=== PATIENT | male | born 1975 | race Caucasian/White ===

== ENCOUNTER 2020-03-14 14:02 | Outpatient (REF) | payer BC, SELFPAY ==
[2020-03-14 14:35] LABS: MANUAL DIFF FLAG NO
[2020-03-14 14:37] LABS: Basophils Absolute Auto 0.1 X10*3/uL (0.0-0.2); Eosinophils Absolute Auto 0.1 X10*3/uL (0.0-0.4); Eosinophils Percent Auto 2.5 % (0-4); Hematocrit 45.6 % (42-52); Imm Gran Abs Auto 0.02 X10*3/uL (0.00-0.03); Imm Gran Pct Auto 0.4 % (0.0-0.4); Lymphocytes Absolute Auto 1.7 X10*3/uL (1.2-4.9); Lymphocytes Percent Auto 32.7 % (20-40); Mean Corpuscular HGB Conc 35.1 g/dl (31.0-36.0); Mean Corpuscular Hemoglobin 32.1 pg (27.0-33.0); Mean Corpuscular Volume 91.4 fL (80-98); Mean Platelet Volume 10.1 fL (9.4-12.4); Monocytes Absolute Auto 0.5 X10*3/uL (0.1-1.2); Monocytes Percent Auto 8.7 % (2-11); Neutrophils Absolute Auto 2.9 X10*3/uL (2.0-8.3); Neutrophils Percent Auto 54.7 % (45-73); Platelet Count 151 X10*3/uL (160-400); Red Blood Count 4.99 X10*6/uL (4.60-5.80); Red Cell Distribution Width 12.6 % (11.0-16.0); White Blood Count 5.2 X10*3/uL (4.8-10.8)
[2020-03-14 14:59] LABS: Alanine Aminotransferase 36 U/L (0-40); Albumin Level 4.6 g/dL (3.5-5.0); Alkaline Phosphatase 57 U/L (39-117); Anion Gap 13 (12-20); Aspartate Amino Transferase 21 U/L (5-37); Bilirubin Total 0.6 mg/dL (0.0-1.0); Blood Urea Nitrogen 14 mg/dL (9-16); Calcium 8.5 mg/dL (8.4-10.2); Carbon Dioxide 26 mmol/L (22-29); Chloride 106 mmol/L (96-108); Estimated Glomerular Filt Rate > 60; Glucose Random 100 mg/dL (60-115); Potassium 4.6 mmol/l (3.3-5.1); Sodium 140 mmol/L (135-145); Total Protein 7.4 g/dL (6.5-8.0)
[2020-03-16 18:17] LABS: TS Negative Control Passed; TS Panel A 0; TS Panel B 0; TS Positive Control Passed; TSpotTB Negative (SeeBelow)
== END 2020-03-14 14:03 | disposition home or self-care (01) ==
LOC: HO.LAB 14:02
PROVIDERS: PCP Internal Medicine; Visit Provider Dermatology
DX: L40.0 Psoriasis vulgaris (principal); D23.9 Other benign neoplasm of skin, unspecified; L81.4 Other melanin hyperpigmentation; L70.8 Other acne; T07.XXXA Unspecified multiple injuries, initial encounter
CPT/HCPCS: 36415; 80053; 85025; 86481

== ENCOUNTER 2021-06-03 07:01 | Outpatient (REF) | payer BC, SELFPAY ==
[2021-06-03 11:25] LABS: MANUAL DIFF FLAG NO
[2021-06-03 11:41] LABS: Basophils Percent Auto 1.1 % (0-2); Eosinophils Absolute Auto 0.1 X10*3/uL (0.0-0.4); Eosinophils Percent Auto 1.6 % (0-4); Hematocrit 43.9 % (42.0-52.0); Lymphocytes Absolute Auto 1.3 X10*3/uL (1.2-4.9); Lymphocytes Percent Auto 33.9 % (20-40); Mean Corpuscular HGB Conc 34.2 g/dl (31.0-36.0); Mean Corpuscular Hemoglobin 31.4 pg (27.0-33.0); Mean Platelet Volume 10.5 fL (9.4-12.4); Monocytes Absolute Auto 0.3 X10*3/uL (0.1-1.2); Neutrophils Absolute Auto 2.1 x10*3/uL (2.0-8.3); Neutrophils Percent Auto 54.4 % (45-73); Platelet Count 128 X10*3/uL (160-400); Red Blood Count 4.77 X10*6/uL (4.60-5.80); Red Cell Distribution Width 12.1 % (11.0-16.0); White Blood Count 3.8 X10*3/uL (4.8-10.8)
[2021-06-03 12:09] LABS: Alanine Aminotransferase 19 U/L (0-40); Albumin Level 4.5 g/dL (3.5-5.0); Alkaline Phosphatase 48 U/L (39-117); Anion Gap 11 (12-20); Aspartate Amino Transferase 12 U/L (5-37); Bilirubin Total 0.9 mg/dL (0.0-1.0); Blood Urea Nitrogen 13 mg/dL (9-16); Calcium 9.6 mg/dL (8.4-10.2); Carbon Dioxide 26 mmol/L (22-29); Chloride 108 mmol/L (96-108); Cholesterol 188 mg/dL; Estimated Glomerular Filt Rate > 60; Glucose Fasting 91 mg/dL (60-99); HDL Cholesterol 25 mg/dL; LDL Cholesterol Calculated 140 mg/dl; Potassium 4.3 mmol/L (3.3-5.1); Sodium 141 mmol/L (135-145); Total Protein 7.2 g/dL (6.5-8.0); Triglycerides 119 mg/dL
[2021-06-03 12:36] LABS: Thyroid Stimulating Hormone 1.75 uIU/mL (0.32-4.0)
[2021-06-05 18:21] LABS: TS Negative Control Passed; TS Panel A 0; TS Panel B 0; TS Positive Control Passed; TSpotTB Negative (Negative)
[2021-06-07 19:26] LABS: Testosterone, Free 65.1 pg/mL (35.0-155.0); Testosterone, Total 354 ng/dL (250-1100)
== END 2021-06-03 07:02 | disposition home or self-care (01) ==
LOC: HO.WFDLDS 07:01
PROVIDERS: Dermatology; PCP Internal Medicine; Visit Provider Internal Medicine
DX: Z00.00 Encounter for general adult medical examination without abnormal findings (principal); Z11.1 Encounter for screening for respiratory tuberculosis; Z13.0 Encounter for screening for diseases of the blood and blood-forming organs and certain disorders involving the immune mechanism; R79.89 Other specified abnormal findings of blood chemistry; L40.0 Psoriasis vulgaris; L29.8 Other pruritus; L30.9 Dermatitis, unspecified
CPT/HCPCS: 36415; 80053; 80061; 84402; 84403; 84443; 85025; 86481

== ENCOUNTER 2021-06-22 11:49 | Emergency (ER) | payer BC, SELFPAY ==
--- NOTE | ~2021-06-22 | CT_ITS ---
EXAMINATION: CT SOFT TISSUE NECK WITH CONTRAST CLINICAL INFORMATION: Hemoptysis. COMPARISON: CT chest from 06/22/2021. TECHNIQUE: Multidetector helical imaging was performed in the axial plane following the administration of 65 mL of Omnipaque 350 intravenous contrast. Multiple axial reformats and coronal/sagittal reconstructions were created the technologist workstation for review. This CT examination was performed using dose optimization techniques as appropriate, variously including the following: *Automated exposure control. *Adjustment of mA and/or kV according to patient size (this includes techniques or standardized protocols for targeted exams where dose is matched to indication/reason for exam; i.e. extremities or head). *Use of iterative reconstruction technique. DLP: 950 mGy-cm FINDINGS: No significant cutaneous thickening or subcutaneous inflammation. No discrete fluid collection within the deep tissues of the neck. The premaxillary, retromaxillary, pterygopalatine fossa, orbital apical, parapharyngeal, and prelaryngeal adipose tissue is maintained. Normal appearance of the parotid, submandibular, and thyroid glands. Scattered subcentimeter lymph nodes bilaterally, none of which are pathologically enlarged or abnormally enhancing. No demonstrated focal lesion or abnormal enhancement within the intrinsic tissues of the tongue or floor of mouth. Normal mucosal contours of the pharynx and larynx without abnormal enhancement. Normal appearance of the hyoid bone, thyroid cartilage, or cartilaginous trachea. The airways remains widely patent. No radiopaque foreign bodies. The atlantooccipital and atlantoaxial articulations remain well aligned. Straightening of the normal cervical lordosis. Otherwise, there is anatomic alignment of the vertebral bodies and posterior elements. No evidence of acute fracture or subluxation of the cervical spine. Moderate degenerative disc disease at C5-C6. Otherwise, mild multilevel degenerative spondyloarthropathy of the cervical spine. The vertebral body heights are maintained. No evidence of epidural collection. There is no prevertebral soft tissue swelling. Normal opacification of the cervical arterial and venous structures. The visualized portion of the skull base is without significant abnormalities. Mild mucosal thickening of the paranasal sinuses. The mastoid air cells and middle ear cavities are clear. No demonstrated significant periapical odontogenic disease. CT Upper Chest: The visualized lung apices and upper mediastinum are within normal limits. CT/CT soft tissue neck w con IMPRESSION: 1. No demonstrated focal lesion, collection, lymphadenopathy, or abnormal enhancement within the soft tissues of the neck. 2. No demonstrated CT abnormalities to explain the patient's symptoms.
--- NOTE | ~2021-06-22 | XR_ITS ---
EXAMINATION: XR CHEST, 2 VIEWS CLINICAL INFORMATION: Question hemoptysis. COMPARISON: 01/05/2007 TECHNIQUE: PA and lateral views of the chest were obtained. FINDINGS: Lungs are clear. No consolidation, pneumothorax, or pleural effusion. Cardiac and mediastinal contours are normal. Pulmonary vasculature is unremarkable. Trachea is midline. Osseous structures are unremarkable. XR/XR chest 2V IMPRESSION: Normal chest radiographs.
--- NOTE | ~2021-06-22 | CT_ITS ---
EXAMINATION: CT ANGIOGRAM OF THE CHEST WITH AND WITHOUT CONTRAST (CT PULMONARY ANGIOGRAM FOR PE) CLINICAL INFORMATION: Reason for Exam hemoptysis COMPARISON: None TECHNIQUE: Prior to contrast administration, noncontrast localization images were obtained. Subsequently, multidetector volumetric imaging was performed from the thoracic inlet to below the diaphragms following the administration of 80 mL Omnipaque 350 intravenous contrast. No contrast reaction reported Sagittal, coronal, and MIP oblique sagittal reformatted images were obtained on the CT workstation, uploaded to PACS, and reviewed. This CT examination was performed using dose optimization techniques as appropriate, variously including the following: *Automated exposure control *Adjustment of mA and/or kV according to patient size (this includes techniques or standardized protocols for targeted exams where dose is matched to indication/reason for exam; i.e. extremities or head) *Use of iterative reconstruction technique Total exam dose-length product 639 mGy-cm FINDINGS: QUALITY OF STUDY/CONTRAST BOLUS: Satisfactory. PULMONARY ARTERIES: No central or segmental pulmonary emboli. THORACIC AORTA: No aneurysm or dissection. LUNG: No focal consolidation, nodules or masses. PLEURA: No pleural effusion or pneumothorax. MEDIASTINUM: Normal heart size. No pericardial effusion. No hilar or mediastinal lymphadenopathy. No evidence of septal bowing or right heart strain. CHEST WALL/AXILLA: No axillary or internal mammary lymphadenopathy. OSSEOUS STRUCTURES: No acute or suspicious osseous abnormality. UPPER ABDOMEN: No adrenal mass. No reflux of contrast into the hepatic veins to suggest elevated right heart pressures. CT/CT angio chest PE protocol IMPRESSION: No pulmonary embolus seen. No acute pulmonary disease. VTE: negative
[2021-06-22 11:55] VITALS: BP 153/94; PULSE 85; RESP 19; TEMP 36.6; O2SAT 98; BMI 34.9
--- NOTE | 2021-06-22 13:23 | ED.GENADULT ---
HPI - General Adult General Chief complaint: General Medical Stated complaint: spitting up blood Time Seen by Provider: 06/22/21 12:21 Source: patient Mode of arrival: ambulatory Limitations: no limitations History of Present Illness HPI narrative: 45 yo male with history of psoriasis on cosentyx SQ Q1 month here with reports of bloody saliva x 3 days. Yesterday filled a shot glass. He reports a feeling in my throat but denies sore throat, hoarse voice, difficulty swallowing or breathing. No cough, shortness of breath, chest pain, leg swelling or pain, fevers, chills. No hematemsis, nausea, vomiting, abdominal pain, black or bloody stools. No anticoagulation use. Patient tells me he smokes occasionally cigar but no regular smoking history. He tells me that he does intermittently drink alcohol. After his mother in the end of May started drinking daily. He tells me he drinks about 1 bottle of red wine an evening. No recent travel, no sick contact. No family history of bleeding or clotting disorders. Related Data Home Medications Medication Instructions Recorded Confirmed secukinumab 150 mg/mL subcutaneous mg SUBCUT Q4W 05/21/21 05/21/21 pen injector (Cosentyx Pen 300 mg/2 Pens () Previous Rx's Medication Instructions Recorded sildenafil 50 mg tablet (Viagra) 50 mg PO DAILY PRN #20 tab 05/21/21 Allergies Allergy/AdvReac Type Severity Reaction Status Date / Time No Known Allergies Allergy Verified 05/21/21 09:59 Review of Systems Review of Systems: Yes all other systems are reviewed and are negative Constitutional: Constitutional: Reports no additional constitutional complaints, Denies body ache(s), Denies chills, Denies fever(s), Denies headache(s) and Denies weakness Eyes: Eyes: Reports no additional eye complaints and Denies change in vision ENT: Reports system reviewed and no additional complaints, except as documented, Denies dizziness, Denies headache(s), Denies epistaxis, Denies nasal congestion, Denies nasal discharge and Denies neck pain Cardiovascular: Cardiovascular: Reports no additional cardiovascular complaints, Denies chest pain, Denies leg edema and Denies dyspnea Respiratory: Respiratory: Reports no additional respiratory complaints, Denies cough, Denies hemoptysis and Denies dyspnea Gastrointestinal: Gastrointestinal: Reports no additional gastrointestinal complaints, Denies abdominal pain, Denies melena, Denies hematochezia, Denies coffee ground emesis, Denies diarrhea, Denies nausea and Denies vomiting Genitourinary: Genitourinary: Denies urinary incontinence Musculoskeletal: Musculoskeletal: Reports no additional musculoskeletal complaints, Denies back pain, Denies arthralgias, Denies joint swelling, Denies neck pain, Denies numbness and Denies tingling Integumentary/Breasts: Skin/Breast: Reports system reviewed and no additional complaints, except as docu and Denies rash Neurologic: Reports system reviewed and no additional complaints, except as documented, Denies dizziness, Denies headache(s), Denies numbness, Denies tingling and Denies weakness PMFSH Past Medical History Attestation statement: The following information was validated with the patient. Source: old records reviewed and nursing notes reviewed Medical History Obesity Surgical History History of inguinal hernia repair Family History Family History Mother No problems noted. Father No problems noted. Social History Social History Housing: House Patient Tobacco Use Status: Never used Tobacco e-Cigarette/Vaping Use: Never Used Second Hand Smoke Exposure: No Advance Directives: No Advance Directives Information Provided: No service: No Current occupational status: employed Cognitive needs: No Hearing needs: No Vision needs: No Physical Exam ED Vital Signs: Vital Signs - 24 hr 06/22/21 11:55 06/22/21 13:32 Temperature 98 F Pulse Rate 85 72 Respiratory Rate 19 Blood Pressure 153/94 H 125/75 Pulse Oximetry 98 BMI result Body Mass Index 34.9 Const General: cooperative, healthy appearing, comfortable and no acute distress Orientation/consciousness: oriented to person Limitations: no limitations HENMT Head: Yes normal to inspection Ears: hearing grossly normal bilaterally and TM's normal bilaterally General nose exam: Normal external nose present, Normal nasal mucous membranes and turbinates present, Normal septum present and No nasal discharge present Face and sinus: Yes normal facial exam and Yes sinuses nontender Mouth: Normal oral and palatal mucosa present, lip normal, tongue normal, oropharynx normal and moist mucous membranes Teeth and gingiva: dentition normal and gingiva normal Throat: Yes posterior oropharynx normal, Yes tonsils normal and Yes uvula midline Eyes General: appearance normal, both eyes and all related structures Pupils: Equal, round and reactive pupils present Neck Neck: Yes normal visual inspection, Yes full ROM, Yes no lymphadenopathy, Yes no meningeal signs and No anterior neck swelling Chest Chest palpation & inspection: normal inspection of the chest Resp Effort & Inspection: normal respiratory effort Auscultation: clear to auscultation bilaterally Cardio Rate: regular rate Peripheral pulses: Peripheral pulses 2+ throughout GI Inspection: Yes normal to inspection Auscultation: normal bowel sounds Rectal Exam - Male: Yes visual inspection normal, Yes normal sphincter tone and Yes heme negative stool General: Yes no CVA tenderness Back/Spine/Pelvis Back: no CVA tenderness Thoracic/Lumbar Spine: thoracic and lumbar spine normal to inspection Skin General skin exam: no rashes or lesions noted Neuro General: oriented to person, moves all extremities and no meningeal signs Cranial nerves: Yes Equal, round and reactive pupils present Cognition (Neuro): normal cognition Gait exam (Neuro): Normal gait present Extrem General: Yes normal to inspection Course Course Course Narrative: 45 yo male here with reports of 3 days of clearing blood from his throat with NO other complaints. Enough that patient filled a shot glass today. Cleared some in ER >1 tablespoon with clot. No visible bleeding in oropharynx or posterior pharynx. Exam is benign. Does have daily alcohol use history. No significant smoking history. D/w with attending Dr Bernstein. Plan for labs, orthostatics, occult stool, CT chest/soft tissue neck 1720-Labs are unremarkable with mild thrombocytopenia but this is unchanged from previous. Orthostatics are negative. Occult stool is negative for blood. Chest x-ray shows no acute finding. CT chest and soft tissue neck are negative for any finding. Explained this to the patient. We did discuss that he likely will need direct visualization through scoping so I will refer him to outpatient providers for this. Hemodynamically he is stable can be safely discharged home. I did review worrisome signs and symptoms is increase in bleeding, difficulty breathing or swallowing, weakness or lightheadedness and when to return to the emergency department. Comfortable discharge home. Medical Decision Making MDM Narrative Medical decision making narrative: Less likely upper GI bleed, varices with no reports of hematemesis, black or bloody stools, abdominal pain, vomiting w/ normal orthostatics, normal hgb and rectal exam negative for blood Consider PE but no SOB, leg swelling or pain, CP, hypoxia, tachypnea, fever or risk factors for PE Consider lung mass but no significant smoking history Consider throat mass vs malignancy but no significant smoking history -thrombocytopenia but not low enought to cause spon bleed also appears to be longstanding for patient from 2019 Medical Records Medical records reviewed: Yes I reviewed the patient's medical records. Lab Data Lab results reviewed: Yes I reviewed the patient's lab results. Result diagrams: 06/22/21 13:39 06/22/21 13:39 Labs: Lab Results 06/22/21 06/22/21 06/22/21 Range/Units 13:39 13:39 13:39 WBC 6.1 (4.8-10.8) X10*3/uL RBC 5.18 (4.60-5.80) X10*6/uL Hgb 15.9 (14.0-18.0) g/dl Hct 46.3 (42.0-52.0) % MCV 89.4 (80.0-98.0) fL MCH 30.7 (27.0-33.0) pg MCHC 34.3 (31.0-36.0) g/dl RDW 12.2 (11.0-16.0) % Plt Count 129 L (160-400) X10*3/uL MPV 9.9 (9.4-12.4) fL Immature Gran % (Auto) 0.2 (0.0-0.4) % Neut % (Auto) 65.1 (45-73) % Lymph % (Auto) 24.5 (20-40) % [place] % (Auto) 8.0 (2-11) % Eos % (Auto) 1.5 (0-4) % Baso % (Auto) 0.7 (0-2) % Lymph # (Auto) 1.5 (1.2-4.9) X10*3/uL [place] # (Auto) 0.5 (0.1-1.2) X10*3/uL Eos # (Auto) 0.1 (0.0-0.4) X10*3/uL Baso # (Auto) 0.0 (0.0-0.2) X10*3/uL Abs Immat Gran (auto) 0.01 (0.00-0.03) X10*3/uL Absolute Neuts (auto) 4.0 (2.0-8.3) x10*3/uL Absolute Nucleated RBC 0.000 (0.0-0.012) X10*3/uL Nucleated RBC % (auto) 0.0 (0.0-0.2) /100WBC PT 11.0 (9.9-13.0) SEC INR 1.0 (0.9-1.1) Sodium 140 (135-145) mmol/L Potassium 4.5 (3.3-5.1) mmol/L Chloride 107 (96-108) mmol/L Carbon Dioxide 26 (22-29) mmol/L Anion Gap 12 (12-20) BUN 18 H (9-16) mg/dL Creatinine 1.15 (0.5-1.4) mg/dL Estim Creat Clear Calc 111.3 Estimated GFR > 60 Random Glucose 91 (60-115) mg/dL Calcium 9.5 (8.4-10.2) mg/dL Total Bilirubin 0.7 (0.0-1.0) mg/dL Direct Bilirubin 0.2 (0.0-0.5) mg/dL AST 18 D (5-37) U/L ALT 31 (0-40) U/L Alkaline Phosphatase 57 (39-117) U/L Total Protein 7.9 (6.5-8.0) g/dL Albumin 4.8 (3.5-5.0) g/dL Stool Occult Blood (NEGATIVE) 06/22/21 Range/Units 13:49 WBC (4.8-10.8) X10*3/uL RBC (4.60-5.80) X10*6/uL Hgb (14.0-18.0) g/dl Hct (42.0-52.0) % MCV (80.0-98.0) fL MCH (27.0-33.0) pg MCHC (31.0-36.0) g/dl RDW (11.0-16.0) % Plt Count (160-400) X10*3/uL MPV (9.4-12.4) fL Immature Gran % (Auto) (0.0-0.4) % Neut % (Auto) (45-73) % Lymph % (Auto) (20-40) % [place] % (Auto) (2-11) % Eos % (Auto) (0-4) % Baso % (Auto) (0-2) % Lymph # (Auto) (1.2-4.9) X10*3/uL [place] # (Auto) (0.1-1.2) X10*3/uL Eos # (Auto) (0.0-0.4) X10*3/uL Baso # (Auto) (0.0-0.2) X10*3/uL Abs Immat Gran (auto) (0.00-0.03) X10*3/uL Absolute Neuts (auto) (2.0-8.3) x10*3/uL Absolute Nucleated RBC (0.0-0.012) X10*3/uL Nucleated RBC % (auto) (0.0-0.2) /100WBC PT (9.9-13.0) SEC INR (0.9-1.1) Sodium (135-145) mmol/L Potassium (3.3-5.1) mmol/L Chloride (96-108) mmol/L Carbon Dioxide (22-29) mmol/L Anion Gap (12-20) BUN (9-16) mg/dL Creatinine (0.5-1.4) mg/dL Estim Creat Clear Calc Estimated GFR Random Glucose (60-115) mg/dL Calcium (8.4-10.2) mg/dL Total Bilirubin (0.0-1.0) mg/dL Direct Bilirubin (0.0-0.5) mg/dL AST (5-37) U/L ALT (0-40) U/L Alkaline Phosphatase (39-117) U/L Total Protein (6.5-8.0) g/dL Albumin (3.5-5.0) g/dL Stool Occult Blood NEGATIVE (NEGATIVE) Imaging Data Chest x-ray: Attestation: I personally reviewed and interpreted this imaging study as follows: Radiologist's impression: [address] [address] XRay Report Signed Patient: Nahid Deleon MR#: [id number] : 1975 Acct:[id number] Age/Sex: 45 / M ADM Date: 06/22/21 Loc: .ED Attending Dr: Ordering Physician: Juliana Davey NP Date of Service: 06/22/21 Procedure(s): XR chest 2V Accession Number(s): [id number] cc: Juliana Davey NP~ EXAMINATION: XR CHEST, 2 VIEWS CLINICAL INFORMATION: Question hemoptysis. COMPARISON: 01/05/2007 TECHNIQUE: PA and lateral views of the chest were obtained. FINDINGS: Lungs are clear. No consolidation, pneumothorax, or pleural effusion. Cardiac and mediastinal contours are normal. Pulmonary vasculature is unremarkable. Trachea is midline. Osseous structures are unremarkable. XR/XR chest 2V IMPRESSION: Normal chest radiogra CT scan - chest: Attestation: I personally reviewed and interpreted this imaging study as follows: Radiologist's impression: FINDINGS: QUALITY OF STUDY/CONTRAST BOLUS: Satisfactory. PULMONARY ARTERIES: No central or segmental pulmonary emboli.? THORACIC AORTA: No aneurysm or dissection. LUNG: No focal consolidation, nodules or masses. PLEURA: No pleural effusion or pneumothorax. MEDIASTINUM: Normal heart size.? No pericardial effusion.? No hilar or mediastinal lymphadenopathy.? No evidence of septal bowing or right heart strain. CHEST WALL/AXILLA: No axillary or internal mammary lymphadenopathy. OSSEOUS STRUCTURES: No acute or suspicious osseous abnormality.? UPPER ABDOMEN: No adrenal mass.? No reflux of contrast into the hepatic veins to suggest elevated right heart pressures. CT/CT angio chest PE protocol IMPRESSION: No pulmonary embolus seen. No acute pulmonary disease. CT neck : Attestation: I personally reviewed and interpreted this imaging study as follows: Radiologist's impression: INDINGS: No significant cutaneous thickening or subcutaneous inflammation. No discrete fluid collection within the deep tissues of the neck. The premaxillary, retromaxillary, pterygopalatine fossa, orbital apical, parapharyngeal, and prelaryngeal adipose tissue is maintained. Normal appearance of the parotid, submandibular, and thyroid glands. Scattered subcentimeter lymph nodes bilaterally, none of which are pathologically enlarged or abnormally enhancing. No demonstrated focal lesion or abnormal enhancement within the intrinsic tissues of the tongue or floor of mouth. Normal mucosal contours of the pharynx and larynx without abnormal enhancement. Normal appearance of the hyoid bone, thyroid cartilage, or cartilaginous trachea. The airways remains widely patent. No radiopaque foreign bodies. The atlantooccipital and atlantoaxial articulations remain well aligned. Straightening of the normal cervical lordosis. Otherwise, there is anatomic alignment of the vertebral bodies and posterior elements. No evidence of acute fracture or subluxation of the cervical spine. Moderate degenerative disc disease at C5-C6. Otherwise, mild multilevel degenerative spondyloarthropathy of the cervical spine. The vertebral body heights are maintained. No evidence of epidural collection. There is no prevertebral soft tissue swelling. Normal opacification of the cervical arterial and venous structures. The visualized portion of the skull base is without significant abnormalities. Mild mucosal thickening of the paranasal sinuses. The mastoid air cells and middle ear cavities are clear. No demonstrated significant periapical odontogenic disease. CT Upper Chest: The visualized lung apices and upper mediastinum are within normal limits. CT/CT soft tissue neck w con IMPRESSION: 1. No demonstrated focal lesion, collection, lymphadenopathy, or abnormal enhancement within the soft tissues of the neck. 2. No demonstrated CT abnormalities to explain the patient's symptoms. Discharge Plan Discharge Clinical Impression: Bleeding, Thrombocytopenia Patient Disposition: Home, Self-Care Instructions: Thrombocytopenia (ED) Additional Instructions: your labs all look normal with the exception of a mildly decreased platelet count Your ct scan of your chest and neck are normal You need to follow-up with ear, nose and throat to have direct visualization of the area Return for increased bleeding, feeling dizzy or lightheaded, difficulty swallowing or breathing Prescriptions: No Action Cosentyx Pen (2 Pens) 150 mg/mL pen injector subcut Q4W 0RF sildenafil [Viagra] 50 mg tablet 50 mg PO DAILY PRN (Reason: sexual activity) Qty: 20 3RF Rx Instructions: administer 30 minutes to 4 hours before activity Referrals: Kirby Carrion [Physician] - 5 days Interventions: ED Discharge Assessment Last Done: 06/22/21 16:39 Discharge Date/Time: 06/22/21 16:43
[2021-06-22 13:32] VITALS: BP 125/75; PULSE 72
[2021-06-22 13:45] LABS: MANUAL DIFF FLAG NO
[2021-06-22 13:53] LABS: OBS Int Ctl Valid YES; OBS1 NEGATIVE (NEGATIVE)
[2021-06-22 14:08] LABS: Basophils Percent Auto 0.7 % (0-2); Eosinophils Absolute Auto 0.1 X10*3/uL (0.0-0.4); Eosinophils Percent Auto 1.5 % (0-4); Hematocrit 46.3 % (42.0-52.0); Hemoglobin 15.9 g/dl (14.0-18.0); Imm Gran Abs Auto 0.01 X10*3/uL (0.00-0.03); Imm Gran Pct Auto 0.2 % (0.0-0.4); Lymphocytes Absolute Auto 1.5 X10*3/uL (1.2-4.9); Lymphocytes Percent Auto 24.5 % (20-40); Mean Corpuscular HGB Conc 34.3 g/dl (31.0-36.0); Mean Corpuscular Hemoglobin 30.7 pg (27.0-33.0); Mean Corpuscular Volume 89.4 fL (80.0-98.0); Mean Platelet Volume 9.9 fL (9.4-12.4); Monocytes Absolute Auto 0.5 X10*3/uL (0.1-1.2); Neutrophils Percent Auto 65.1 % (45-73); Platelet Count 129 X10*3/uL (160-400); Red Blood Count 5.18 X10*6/uL (4.60-5.80); Red Cell Distribution Width 12.2 % (11.0-16.0); White Blood Count 6.1 X10*3/uL (4.8-10.8)
[2021-06-22 14:11] LABS: Alanine Aminotransferase 31 U/L (0-40); Albumin Level 4.8 g/dL (3.5-5.0); Alkaline Phosphatase 57 U/L (39-117); Anion Gap 12 (12-20); Aspartate Amino Transferase 18 U/L (5-37); Bilirubin Direct 0.2 mg/dL (0.0-0.5); Bilirubin Total 0.7 mg/dL (0.0-1.0); Blood Urea Nitrogen 18 mg/dL (9-16); Calcium 9.5 mg/dL (8.4-10.2); Carbon Dioxide 26 mmol/L (22-29); Chloride 107 mmol/L (96-108); Creatinine Clr Calc Pharmacy 111.3; Estimated Glomerular Filt Rate > 60; Glucose Random 91 mg/dL (60-115); Potassium 4.5 mmol/L (3.3-5.1); Sodium 140 mmol/L (135-145); Total Protein 7.9 g/dL (6.5-8.0)
[2021-06-22] MEDS: iohexoL 350 MG/ML 100 ML INFUS..BTL IV (14:59)
== END 2021-06-22 16:43 | disposition home or self-care (01) ==
PROVIDERS: Nurse Practitioner Family; Emergency Provider Emergency Medicine Emergency Medical Services; PCP Internal Medicine
DX: R04.2 Hemoptysis (principal); D69.6 Thrombocytopenia, unspecified
CPT/HCPCS: 36415; 70491; 71046; 71275; 80048; 80076; 82272; 85025; 85610; 99284; Q9967

== ENCOUNTER 2021-08-07 08:24 | Outpatient (REF) | payer BC, SELFPAY ==
--- NOTE | ~2021-08-07 | FL_ITS ---
EXAMINATION: FL BARIUM SWALLOW CLINICAL INFORMATION: Dysphagia. COMPARISON: None TECHNIQUE: Barium swallow examination is performed using fluoroscopic evaluation in addition to multiple fluoroscopic spot views. The patient is imaged both upright and prone and using both thick and thin sulfate along with effervescent granules. Fluoroscopy time: 1.3 minutes DAP: 7.6 Gy-cm2 Images: 43 FINDINGS: Following oral administration of thick barium and effervescent granules in upright view, there is normal propagation of bolus from the oral cavity through the pharynx and esophagus and into the stomach without any evidence of obstruction, narrowing or stricture. No extrinsic compression seen. No laryngeal penetration or aspiration. On placing patient prone lying and oral administration of thin barium, there is good distention of the entire esophagus. No gastroesophageal reflux or hiatal hernia seen in supine view. FL/FL barium swallow IMPRESSION: Unremarkable barium swallow exam in upright and lying positions.
== END 2021-08-07 08:25 | disposition home or self-care (01) ==
LOC: HO.XRAY 08:24
PROVIDERS: Visit Provider Otolaryngology
DX: R13.10 Dysphagia, unspecified (principal)
CPT/HCPCS: 74220

== ENCOUNTER 2023-05-28 11:48 | Outpatient (REF) | payer BC, SELFPAY ==
[2023-05-28 12:21] LABS: MANUAL DIFF FLAG NO
[2023-05-28 12:55] LABS: Basophils Percent Auto 0.9 % (0-2); Eosinophils Absolute Auto 0.1 X10*3/uL (0.0-0.4); Hematocrit 45.5 % (42.0-52.0); Hemoglobin 15.8 g/dl (14.0-18.0); Imm Gran Abs Auto 0.01 X10*3/uL (0.00-0.03); Imm Gran Pct Auto 0.2 % (0.0-0.4); Lymphocytes Absolute Auto 1.6 X10*3/uL (1.2-4.9); Lymphocytes Percent Auto 35.4 % (20-40); Mean Corpuscular HGB Conc 34.7 g/dl (31.0-36.0); Mean Corpuscular Hemoglobin 30.4 pg (27.0-33.0); Mean Corpuscular Volume 87.5 fL (80.0-98.0); Monocytes Absolute Auto 0.4 X10*3/uL (0.1-1.2); Monocytes Percent Auto 9.1 % (2-11); Neutrophils Absolute Auto 2.4 x10*3/uL (2.0-8.3); Neutrophils Percent Auto 52.4 % (45-73); Platelet Count 166 X10*3/uL (160-400); Red Cell Distribution Width 12.4 % (11.0-16.0); White Blood Count 4.5 X10*3/uL (4.8-10.8)
[2023-05-31 07:34] LABS: TS Negative Control Passed; TS Panel A 0; TS Panel B 0; TS Positive Control Passed; TSpotTB Negative (Negative)
== END 2023-05-28 11:49 | disposition home or self-care (01) ==
LOC: HO.LAB 11:48
PROVIDERS: Absent Provider Dermatology; PCP Internal Medicine; Visit Provider Internal Medicine
DX: Z11.1 Encounter for screening for respiratory tuberculosis (principal); D64.9 Anemia, unspecified
CPT/HCPCS: 36415; 80053; 80061; 85025; 86481

== ENCOUNTER 2023-05-29 12:16 | Outpatient (REF) | payer BC, SELFPAY ==
[2023-05-29 13:05] LABS: Alanine Aminotransferase 16 U/L (0-40); Albumin Level 4.6 g/dL (3.5-5.0); Alkaline Phosphatase 54 U/L (39-117); Anion Gap 11 (12-20); Aspartate Amino Transferase 14 U/L (5-37); Blood Urea Nitrogen 14 mg/dL (9-16); Calcium 9.5 mg/dL (8.4-10.2); Carbon Dioxide 29 mmol/L (22-29); Chloride 106 mmol/L (96-108); Cholesterol 200 mg/dL (<200); Estimated Glomerular Filt Rate 55; Glucose Fasting 84 mg/dL (60-99); HDL Cholesterol 26 mg/dL (>40); LDL Cholesterol Calculated 142 mg/dL (<100); Potassium 4.2 mmol/L (3.3-5.1); Sodium 142 mmol/L (135-145); Total Protein 7.7 g/dL (6.5-8.0); Triglycerides 163 mg/dL (<150)
== END 2023-05-29 12:17 | disposition home or self-care (01) ==
LOC: HO.LAB 12:16
PROVIDERS: Visit Provider Internal Medicine
DX: N28.9 Disorder of kidney and ureter, unspecified (principal); E78.5 Hyperlipidemia, unspecified
CPT/HCPCS: 36415; 80053; 80061

== ENCOUNTER 2023-05-29 12:47 | Day surgery (SDC) | payer BC, SELFPAY ==
--- NOTE | 2023-05-28 09:41 | HO.ANESPROP2 ---
Documented by User: Nola Johnston NP 05/28/23 09:42 HPI - Anesthesia Eval Consult details Narrative: 47yo M for Colonoscopy [facility] Active Problems Active Problems: All Active Problems (Updated 08/15/22 @ 09:19 by Jose Urbina MD) Psoriasis (Acute) Obesity (Acute) Physical exam (Acute) Past Medical History Medical History Obesity Family History Family History Mother No problems noted. Father No problems noted. Surgical History Surgical History History of inguinal hernia repair Social History Social History Housing: House Patient Tobacco Use Status: Never used Tobacco e-Cigarette/Vaping Use: Never Used Second Hand Smoke Exposure: No Are you DNR?: No Advance Directives: No Advance Directives Information Provided: Yes Nutrition Risks: No Nutritional Risk service: No Current occupational status: employed Cognitive needs: No Hearing needs: No Vision needs: No Meds Allergies Allergy/AdvReac Type Severity Reaction Status Date / Time No Known Allergies Allergy Verified 08/15/22 08:53 Home Medications Medication Instructions Recorded Confirmed Last Taken Type secukinumab 150 mg/mL subcutaneous mg subcut Q4W 05/21/21 08/15/22 Unknown History pen injector (Cosentyx Pen 300 mg/2 Pens () Assessment and Plan Assessment Anesthesia Assessment: Chart Reviewed Documented by User: Rosana Nuno MD 05/29/23 13:34 [facility] Past Medical History Medical History Obesity Family History Family History Mother No problems noted. Father No problems noted. Family history of problems with anesthesia: No Surgical History Surgical History History of inguinal hernia repair History of Problems with Anesthesia: No Social History Social History Housing: House Patient Tobacco Use Status: Never used Tobacco e-Cigarette/Vaping Use: Never Used Second Hand Smoke Exposure: No Are you DNR?: No Advance Directives: No Advance Directives Information Provided: Yes Nutrition Risks: No Nutritional Risk service: No Current occupational status: employed Cognitive needs: No Hearing needs: No Vision needs: No Meds Allergies Allergy/AdvReac Type Severity Reaction Status Date / Time No Known Allergies Allergy Verified 08/15/22 08:53 Home Medications Medication Instructions Recorded Confirmed Last Taken Type secukinumab 150 mg/mL subcutaneous mg subcut Q4W 05/21/21 08/15/22 Unknown History pen injector (Cosentyx Pen 300 mg/2 Pens () Exam Airway Mallampati Class: II TM Dist: >3cm Neck ROM: Full Heart: rrr Lungs: cta Assessment and Plan Assessment Anesthesia Assessment: Anesthesia Plan Discussed Final Anesthetic Review Family History of Problems with Anesthesia: No History of Problems with Anesthesia: No NPO: Yes ASA Class: II Final Preanesthetic Review: No Changes in Pt Med Stat, Meds/Allgs Chart Reviewed and Consent Obtained/Reviewed Patient Risk: Intermediate Procedure Risk: Low Anesthetic Plan Anesthetic Plan: MAC: Disposition: Standard PACU
[2023-05-29 13:24] VITALS: BP 128/80; PULSE 74; RESP 18; TEMP 36.6; O2SAT 97
[2023-05-29 13:26] VITALS: BMI 34.3
[2023-05-29] MEDS: Lactated Ringers 1,000 ML 100 ML IVCONT (13:37)
[2023-05-29 15:10] VITALS: BP 118/77; PULSE 75; RESP 16; TEMP 36.4; O2SAT 97
--- NOTE | 2023-05-29 15:14 | P.BOP_ITS ---
Brief Operative Note Date of Service: 05/29/23 Pre-op diagnosis: Screening Post-op diagnosis: other (Internal hemorrhoids) Procedure: Colonoscopy to the cecum Surgeon: Konstantin Bains MD Anesthesia: MAC Was an Field Health Officer used for this Procedure?: No Estimated blood loss (mL): 0 Pathology: none sent Condition: stable Disposition: PACU
[2023-05-29 15:25] VITALS: BP 119/78; PULSE 68; RESP 20; TEMP 36.4; O2SAT 98
--- NOTE | 2023-05-30 01:54 | OP_ITS ---
DATE OF SERVICE: 05/29/2023 SURGEON: Konstantin Bains MD INDICATIONS: The patient presents for evaluation of colorectal cancer screening. Full consent has been obtained from him for this, including risks of bleeding and perforation. PREOPERATIVE DIAGNOSIS: Colorectal cancer screening. POSTOPERATIVE DIAGNOSIS: PROCEDURE PERFORMED: Colonoscopy to the cecum. ESTIMATED BLOOD LOSS: COMPLICATIONS: ANESTHESIA: Monitored anesthesia care. ASSISTANTS: SPECIMENS: POSTOPERATIVE DIAGNOSES: Colorectal cancer screening, small internal hemorrhoids. DESCRIPTION OF PROCEDURE: The patient was placed in the left lateral decubitus position. The digital rectal exam revealed no abnormalities. The Olympus video pediatric colonoscope was entered into the rectum and advanced to the cecum with the assistance of abdominal wall pressure. Once in the cecum, I did identify normal-appearing cecal pouch with appendiceal orifice and a normal-appearing ileocecal valve. The entire cecum and ileocecal valve appeared normal. The scope was slowly withdrawn assessing all mucosal surfaces carefully. Preparation was excellent after some irrigation and suctioning. I did not visualize any sign of polyps, colitis, nor angiodysplasias. In the rectum, the scope was retroflexed visualizing some small internal hemorrhoids, but no other pathology. The rectal mucosa appeared normal. The scope was straightened and withdrawn from the patient. He tolerated the procedure well and was returned to the recovery area in stable condition. IMPRESSION: Small internal hemorrhoids. PLAN: Given his negative exam, I would recommend a repeat colonoscopy in 10 years for further screening. He will otherwise see me on a p.r.n. basis. MD DUNIA Justice/KEN / [id number] MTD[employer]el
== END 2023-05-29 15:51 | disposition home or self-care (01) ==
PROVIDERS: PCP Internal Medicine; Visit Provider Internal Medicine
PROC: 0DJD8ZZ Inspection of Lower Intestinal Tract, Via Natural or Artificial Opening Endoscopic (ICD-10-PCS; CPT 45378; principal; 2023-05-29 14:10)
DX: Z12.11 Encounter for screening for malignant neoplasm of colon (principal); K64.8 Other hemorrhoids
CPT/HCPCS: 45378; J1596; J2704

== ENCOUNTER 2023-08-20 08:46 | Outpatient (AMB) | payer BC, SELFPAY ==
--- NOTE | 2023-08-20 08:51 | A.OFFPC_ITS ---
Vital Signs 08/20/23 08:52 Height 6 ft 1 in Weight 264 lb BMI 34.8 BP 126/80 Blood Pressure Location Lt brachial Position Sitting Intake Visit Reasons: Annual Exam Intake Note: Patient here for a physical exam Surgical Services Director Required: No Accompanied by: Self / Same As Patient Allergies No Known Allergies Allergy (Verified 08/20/23 08:55) Medication List - Last Reconciled 08/20/23 by Jose Urbina MD secukinumab (Cosentyx Pen 300 mg/2 Pens () mg subcut Q4W sildenafil (Viagra) 50 mg PO DAILY PRN Tobacco use date assessed: 08/20/23 Dental Screening Dental Screen Date: 08/20/23 Did you have a dental visit in the last 12 months?: Yes Did you have a dental problem in the last 6 months where you did not have access to dental care?: No Was dental information given to patient?: Patient has dentist HPI Annual Exam HPI Details psoriasis; sees derm [facility] Medical History Obesity Surgical History History of inguinal hernia repair Family History Mother No problems noted. Father No problems noted. Social History (Updated 08/20/23 @ 08:56 by DIAN Lewis) Housing: House Alcohol intake: former Patient Tobacco Use Status: Never used Tobacco e-Cigarette/Vaping Use: Never Used Second Hand Smoke Exposure: No service: No Current occupational status: employed Current occupational exposures/hazards: No Cognitive needs: No Hearing needs: No Vision needs: No Questionnaire PHQ-9 Over the last 2 weeks, how often have you been bothered by any of the following problems? 1. Little interest or pleasure in doing things: not at all 2. Feeling down, depressed, or hopeless: not at all 3. Trouble falling or staying asleep, or sleeping too much: not at all 4. Feeling tired or having little energy: not at all 5. Poor appetite or overeating: not at all 6. Feeling bad about yourself - or that you are a failure or have let yourself or your family down: not at all 7. Trouble concentrating on things, such as reading the newspaper or watching television: not at all 8. Moving or speaking so slowly that other people could have noticed. Or the opposite - being so fidgety or restless that you have been moving around a lot more than usual: not at all 9. Thoughts that you would be better off or of hurting yourself in some way: not at all Total score: 0 Depression Screening Interpretation: Negative Depression Screening Done: Yes 82618 - PHQ-9 Billing: Yes Source: Developed by Drs. Konstantin Umaña, Alva Hooper, Zbigniew Fletcher and colleagues, with an educational alex from [employer]. Thrive Questionnaire Date Thrive assessed: 08/20/23 I am a: Patient What is your living situation today?: I have a steady place to live Within the past 12 months, did the food you bought not last and you didn't have the money to get more?: Never true Within the past 12 months, did you worry whether your food would run out before you got money to buy more?: Never true Do you have trouble paying for medicines?: No Do you have trouble getting transportation to medical appointments?: No Do you have trouble paying your heating and electricity bill?: No Do you have trouble taking care of your child, family member or friend?: No Do you have trouble with day-to-day activities such as bathing, preparing meals, shopping, managing finances, etc.?: No Are you currently unemployed and looking for a job?: No Are you interested in more education?: No Please select the resources that you would like help with: None Currently or been in a relationship where the following occur: no concerns reported THRIVE Score: 0 AUDIT C Alcohol Use Questionnaire (AUDIT-C) 1. How often do you have a drink containing alcohol?: Never Total Score: 0 ERIN-7 AMB Questionnaire ERIN-7 Date ERIN - 7 assessed: 08/20/23 Feeling nervous, anxious, or on edge: 0 = Not at all Not being able to stop or control worryin = Not at all Worrying too much about different things: 0 = Not at all Trouble relaxin = Not at all Being so restless that it is hard to sit still: 0 = Not at all Becoming easily annoyed or irritable: 0 = Not at all Feeling afraid as if something awful might happen: 0 = Not at all Total ERIN-7 score (0-4 normal; 5-9 mild; 10-14 moderate; 15-21 severe): 0 Source: Developed by Drs. Konstantin Umaña, Alva Hooper, Zbigniew Fletcher and colleagues, with an educational alex from [employer]. ERIN-7 Assessment Billing ERIN-7 Assessment Tool: ERIN-7 Assessment 93077 Review of Systems Const Denies chills, Denies fatigue, Denies headache(s) and Denies weight loss Eyes Denies change in vision, Denies diplopia and Denies eye pain ENT Denies vertigo, Denies dizziness, Denies headache(s) and Denies nasal discharge Card Denies chest pain, Denies rapid heart rate and Denies dyspnea on exertion Resp Denies chest congestion, Denies cough, Denies pain with cough and Denies dyspnea on exertion GI Denies abdominal pain, Denies hematochezia and Denies change in bowel habits Musc Denies myalgias, Denies arthralgias and Denies joint swelling Skin/Breast Denies lesions and Denies unusual bruising Neuro Denies vertigo, Denies dizziness, Denies headache(s) and Denies focal weakness Endo Denies fatigue Physical exam (Primary Care) Vital Signs: Last Vital Signs BP 126/80 08/20/23 08:52 BMI result Body Mass Index 34.8 Tobacco/Smoking Status: Tobacco use Status Tobacco use date assessed 08/20/23 08/20/23 08:57 Patient Tobacco Use Status Never used Tobacco 08/20/23 08:57 e-Cigarette/Vaping Use Never Used 08/20/23 08:57 PHQ-9: PHQ-9 Score PHQ-9: Total score 0 08/20/23 08:57 Depression Screening Interpretation: Negative Thrive Assessment: Date of Thrive Assessment Date Thrive assessed 08/20/23 08/20/23 08:57 Currently or been in a relationship where the following occur: no concerns reported Const General: cooperative, healthy appearing and no acute distress Orientation/consciousness: oriented to person, oriented to place and oriented to time HENMT Head: Yes normal to inspection, Yes normocephalic and Yes atraumatic Mouth: Normal oral and palatal mucosa present and tongue normal Throat: Yes posterior oropharynx normal and Yes uvula midline Eyes General: appearance normal, both eyes and all related structures Neck Neck: Yes normal visual inspection, Yes full ROM and Yes no lymphadenopathy Thyroid: Thyroid normal Carotids: normal carotid upstroke Chest Chest palpation & inspection: normal inspection of the chest Resp Effort & Inspection: normal respiratory effort and able to speak in complete sentences Auscultation: clear to auscultation bilaterally Cardio Jugular venous distension: no JVD Palpation: normal PMI Rate: regular rate Rhythm: regular rhythm Heart sounds: S1 normal heart sound present and S2 normal heart sound present GI Inspection: Yes normal to inspection Palpation (GI): Soft to palpation and No hepatosplenomegaly present Auscultation: normal bowel sounds General: Yes no CVA tenderness Back/Spine/Pelvis Back: no CVA tenderness Skin General skin exam: no rashes or lesions noted Neuro General: oriented to person, oriented to place and oriented to time Extrem General: Yes normal to inspection and Yes full ROM Assessment and Plan Assessment & Plan (1) Physical exam: Code(s): Z00.00 - Encounter for general adult medical examination without abnormal findings Plan: stable (2) Psoriasis: Code(s): L40.9 - Psoriasis, unspecified Plan: as per derm Medications: New tadalafil (Cialis) administer approximately 30min before sexual activity; do not use more than 1 dose per 24hrs 20 mg PO DAILY PRN 30 tabs 3RF sexual activity Refilled sildenafil (Viagra) administer 30 minutes to 4 hours before activity 50 mg PO DAILY PRN 20 tabs 3RF sexual activity Coding Level of Care Code Est Pt Prev Care 40-64y(67946) Diagnoses Physical exam Z00.00 Psoriasis L40.9 Additional Codes ERIN-7 Assessment Billing - ERIN-7 Assessment Tool: ERIN-7 Assessment [id number] ([id number])
[2023-08-20 08:52] VITALS: BP 126/80; BMI 34.8
== END 2023-08-20 09:24 | disposition home or self-care (01) ==
PROVIDERS: Visit Provider Internal Medicine
DX: Z00.00 Encounter for general adult medical examination without abnormal findings (principal); L40.9 Psoriasis, unspecified
CPT/HCPCS: 99396

== ENCOUNTER 2024-08-23 09:57 | Outpatient (AMB) | payer BC, SELFPAY ==
--- NOTE | 2024-08-23 10:04 | MHC.PC.OV ---
Vital Signs 08/23/24 10:05 Height 6 ft 1 in Weight 268 lb 9.6 oz BMI 35.4 BP 132/80 Blood Pressure Location Lt brachial Position Sitting Respiration 18 Pulse 72 Pulse Source Pulse Oximeter Temp 98.9 F Temp Source Oral Pulse Oximetry (%) 97 Oxygen Delivery Method Room Air Intake Visit Reasons: PAGE Dr Urbina Guide Rail Cleaner Required: No Accompanied by: Self / Same As Patient Allergies No Known Allergies Allergy (Verified 08/23/24 10:18) Medication List - Last Reconciled 08/23/24 by GEORGETTE Ji calcipotriene 0.005% 1 appl topical BID needle (disp) 18 G (BD Regular Bevel Cedar) As directed needle (disp) 23 gauge (Hypodermic Cedar) As directed secukinumab (Cosentyx Pen 300 mg/2 pens () mg subcut Q4W syringe (disposable) As directed tadalafil (Cialis) 20 mg PO DAILY PRN Tobacco use date assessed: 08/23/24 Dental Screening Dental Screen Date: 08/23/24 Did you have a dental visit in the last 12 months?: Yes Did you have a dental problem in the last 6 months where you did not have access to dental care?: No Was dental information given to patient?: Patient has dentist HPI PAGE Dr Urbina HPI Details The patient is a 48-year-old male presenting with chronic fatigue. He details the consistent onset of fatigue particularly post-afternoon, despite managing a seemingly adequate sleep duration and using a CPAP machine for obstructive sleep apnea. His fatigue persists despite eliminating alcohol consumption three years ago, a period during which he increased coffee consumption. He maintains a history of psoriasis with effective control through Cosentyx and topical treatments for episodic flare-ups. His testosterone replacement therapy started recently due to low-normal testosterone levels from an [employer], but it yet to provide noticeable symptomatic relief. Chronic conditions include hypertension managed with monitoring and lifestyle adjustments, without current pharmacological intervention; and hyperlipidemia with slightly elevated cholesterol levels addressed through dietary interventions. [facility] Medical History NEL (obstructive sleep apnea) HTN (hypertension) Obesity Surgical History History of inguinal hernia repair Family History Mother No problems noted. Father No problems noted. Social History Housing: House Alcohol intake: former Patient Tobacco Use Status: Never used Tobacco e-Cigarette/Vaping Use: Never Used Second Hand Smoke Exposure: No service: No Current occupational status: employed Current occupational exposures/hazards: No Cognitive needs: No Hearing needs: No Vision needs: No Questionnaire Thrive Questionnaire Date Thrive assessed: 08/23/24 I am a: Patient What is your living situation today?: I have a steady place to live Within the past 12 months, did the food you bought not last and you didn't have the money to get more?: Never true Within the past 12 months, did you worry whether your food would run out before you got money to buy more?: Never true Do you have trouble paying for medicines?: No Do you have trouble getting transportation to medical appointments?: No Do you have trouble paying your heating and electricity bill?: No Do you have trouble taking care of your child, family member or friend?: No Do you have trouble with day-to-day activities such as bathing, preparing meals, shopping, managing finances, etc.?: No Are you currently unemployed and looking for a job?: No Are you interested in more education?: No Please select the resources that you would like help with: None Currently or been in a relationship where the following occur: No concerns reported THRIVE Score: 0 AUDIT C Alcohol Use Questionnaire (AUDIT-C) 1. How often do you have a drink containing alcohol?: Never 3. How often do you have six or more drinks on one occasion?: Never Total Score: 0 Score Reviewed/Action Taken: No ERIN-7 AMB Questionnaire ERIN-7 Date ERIN - 7 assessed: 08/20/23 Source: Developed by Drs. Konstantin Umaña, Alva Hooper, Zbigniew Fletcher and colleagues, with an educational alex from [employer]. Review of Systems Const Details: - Constitutional: Reports chronic fatigue primarily in late afternoon. - Respiratory: Denies recent respiratory symptoms. - Cardiovascular: Denies chest pain or palpitations, known hypertension. - Dermatological: Reports psoriasis status under control with recent eczema managed. - Endocrinology: Experiencing no relief from low testosterone interventions yet. - Sleep: Using CPAP with indeterminate efficacy due to non-recent follow up. Reports fatigue, Denies headache(s) and Reports lethargy Eyes Denies loss of vision ENT Denies vertigo, Denies dizziness, Denies headache(s) and Denies sore throat Card Denies chest pain, Denies leg edema and Denies lightheadedness Resp Denies cough, Denies hemoptysis and Denies wheezing GI Denies abdominal pain, Denies melena, Denies constipation, Denies diarrhea and Denies vomiting Denies dysuria, Denies urinary frequency and Denies urinary urgency Musc Reports arthralgias (left knee on and off soreness), Denies joint swelling, Denies numbness and Denies tingling Skin/Breast Reports other (on and off psoriasis lesions) Neuro Denies Abnormal speech present, Denies behavioral changes, Denies vertigo, Denies dizziness, Denies headache(s), Denies loss of vision, Denies memory loss, Denies numbness and Denies tingling Psych Denies anxiety, Denies behavioral changes, Denies depression, Denies memory loss and Denies panic attacks Endo Reports fatigue Abundio/Lymph Denies easy bleeding and Denies easy bruising Aller/Immun Denies wheezing Physical exam (Primary Care) Vital Signs: Last Vital Signs Temp 98.9 F 08/23/24 10:05 Pulse 72 08/23/24 10:05 Resp 18 08/23/24 10:05 BP 132/80 08/23/24 10:05 Pulse Ox 97 08/23/24 10:05 Oxygen Delivery Method Room Air 08/23/24 10:05 BMI result Body Mass Index 35.4 Tobacco/Smoking Status: Tobacco use Status Tobacco use date assessed 08/23/24 08/23/24 10:07 Patient Tobacco Use Status Never used Tobacco 08/23/24 10:07 e-Cigarette/Vaping Use Never Used 08/23/24 10:07 Thrive Assessment: Date of Thrive Assessment Date Thrive assessed 08/23/24 08/23/24 10:07 Currently or been in a relationship where the following occur: No concerns reported Const General: healthy appearing, no acute distress, alert and awake Nutritional Appearance: well nourished Orientation/consciousness: oriented to person, oriented to place and oriented to time HENMT Ears: TM's normal bilaterally General nose exam: Normal external nose present Eyes Conjunctivae: conjunctivae normal Sclerae: sclerae normal Pupils: Equal, round and reactive pupils present Neck Neck: Yes no lymphadenopathy and Yes no JVD Thyroid: Thyroid normal Carotids: no bruits Resp Effort & Inspection: normal respiratory effort and not tachypneic Auscultation: no crackles, no rales, no rhonchi and no wheezes Cardio Rate: regular rate Rhythm: regular rhythm Heart sounds: no murmurs and normal S1 and S2 GI Palpation (GI): Soft to palpation, nontender, no hepatomegaly and no splenomegaly Auscultation: normal bowel sounds General: Yes no CVA tenderness Back/Spine/Pelvis Back: no CVA tenderness Cervical Spine: No Cervical spine tenderness Thoracic/Lumbar Spine: No thoracic spinal tenderness and No lumbar spinal tenderness Skin Rashes: rashes noted (scaly patches noted to fingers of right hand) Neuro General: oriented to person, oriented to place and oriented to time Cranial nerves: Yes Equal, round and reactive pupils present Speech: No Abnormal speech present Gait exam (Neuro): Normal gait present Motor exam (neuro): no tremor noted Extrem Right upper extremity: full ROM Left upper extremity: full ROM Right lower extremity: full ROM; no edema Left lower extremity: full ROM; no edema Psych Mental Status: mental status grossly normal Speech and movement: Normal speech and movement present Affect: normal affect Attitude: cooperative Thought process: Normal thought process present Coding Level of Care Code Est Pt Level 4 (16912) Diagnoses NEL (obstructive sleep apnea) G47.33 Psoriasis L40.9 Class 2 obesity without serious comorbidity with body mass index (BMI) of 35.0 to 35.9 in adult, unspecified obesity type E66.812; Z68.35 Body mass index: BMI 35.0-35.9 Obesity classification: adult class 2 (BMI 35 - 39.9) Obesity type: unspecified obesity type Serious obesity comorbidity presence: without serious comorbidity Hypertension, unspecified type I10 Hypertension type: unspecified Time Spent (min) 37 Assessment & Plan Assessment & Plan (1) NEL (obstructive sleep apnea): Code(s): G47.33 - Obstructive sleep apnea (adult) (pediatric) Category: Medical (2) Psoriasis: Code(s): L40.9 - Psoriasis, unspecified Category: Medical (3) Obesity: Code(s): E66.9 - Obesity, unspecified Category: Medical Qualifiers: Body mass index: BMI 35.0-35.9 Obesity classification: adult class 2 (BMI 35 - 39.9) Obesity type: unspecified obesity type Serious obesity comorbidity presence: without serious comorbidity Qualified Code(s): E66.812 - Obesity, class 2; Z68.35 - Body mass index [BMI] 35.0-35.9, adult (4) HTN (hypertension): Code(s): I10 - Essential (primary) hypertension Category: Medical Qualifiers: Hypertension type: unspecified Qualified Code(s): I10 - Essential (primary) hypertension Plan I will continue overseeing the patient's psoriasis management spearheaded by Dermatology and recommend sustained monitoring and nutritional approaches for both hypertension and hyperlipidemia. Periodic reassessment of his testosterone replacement therapy will help determine its ongoing appropriateness given the low-normal baseline levels. Examining the effectiveness of current sleep apnea management through CPAP usage is necessary. The patient's chronic fatigue requires additional investigation with forthcoming labs, including thyroid function, to eliminate further systemic contributors. Health maintenance encompasses monitoring, preventative screenings, and addressing lifestyle factors contributing to chronic conditions. Patient was informed and verbally consented to the use of an ambient scribe for clinic note documentation during this visit. Orders: Orders Glucose Fasting 08/23/24 E66.9 - Obesity, unspecified, L40.9 - Psoriasis, unspecified, Z00.00 - Encounter for general adult medical examination without abnormal findings Complete Blood Count Auto Diff 08/23/24 E66.9 - Obesity, unspecified, L40.9 - Psoriasis, unspecified, Z00.00 - Encounter for general adult medical examination without abnormal findings Comprehensive [place]. Panel Fast 08/23/24 E66.9 - Obesity, unspecified, L40.9 - Psoriasis, unspecified, Z00.00 - Encounter for general adult medical examination without abnormal findings Vitamin D 25-OH Total 08/23/24 E66.9 - Obesity, unspecified, L40.9 - Psoriasis, unspecified, Z00.00 - Encounter for general adult medical examination without abnormal findings UA CC w/rflx Micro + Cult 08/23/24 E66.9 - Obesity, unspecified, L40.9 - Psoriasis, unspecified, Z00.00 - Encounter for general adult medical examination without abnormal findings TSH reflex Free T4 08/23/24 E66.9 - Obesity, unspecified, L40.9 - Psoriasis, unspecified, Z00.00 - Encounter for general adult medical examination without abnormal findings Lipid Panel 08/23/24 E66.9 - Obesity, unspecified, L40.9 - Psoriasis, unspecified, Z00.00 - Encounter for general adult medical examination without abnormal findings Patient Instructions: - Continue Cosentyx and topical treatments for psoriasis as directed and follow up with Dermatology as scheduled. - Monitor blood pressure regularly at home. - Adopt dietary changes to target lower cholesterol intake, including reducing shellfish and yolk consumption and activity as tolerated - Follow-up with telemedicine provider who providing testosterone therapy to further evaluate effectiveness. - Use CPAP as prescribed; consider contacting your provider for an update on device metrics. - Avoid NSAID overuse; maintain hydration to support kidney function. - Schedule fasting labs for updated blood work and thyroid function assessment. - Maintain yearly health check-ups unless specific symptoms arise.
[2024-08-23 10:05] VITALS: BP 132/80; PULSE 72; RESP 18; TEMP 37.2; O2SAT 97; BMI 35.4
--- OUTSIDE RECORDS SUMMARY | 2024-08-23 11:30 | XMS_ITS ---
Author Organization [facility] Address [address] [place] [address] Care Team Providers Care Courier Name Role Phone Carlitos ROBERTS, Jose Primary Care Provider Konstantin Franco [phone] REASON FOR VISIT screening Encounters Encounter Location Date Provider Diagnosis [facility] [place] Out[place] [address] [place], [place] [phone] 04/17/2023 Konstantin Bains Plan Of Treatment No Information Progress Notes * DIANE BURNSDOB:1975 (48 yo M)Acc No.[id number]:04/17/2023 COLON WITH MAC Patient:?DIANE BURNS Provider:?Konstantin Bains MD :1975???Age:47 Y???Sex:Male Khoi e:04/17/2023 Address:[address] [place], [place] [id number] Pcp:Jose Urbina MD Subjective: * Chief Complaints: * ???1. Screening. * Medical History:? Objective: * Vitals:? Assessment: Plan: * Treatment: * * The named appointment provid er may or may not be the originator of this progress note, and it is not deemed complete until electronically signed by the appointment provider. Sign off status: Pending * Provider:?Konstantin Bains MD Date:? 023 Generated for Printi ng/Faniig/eTransmitting on:?08/23/2024 11:29 AM EDT
--- OUTSIDE RECORDS SUMMARY | 2024-08-23 11:30 | XMS_ITS ---
Author Organization [facility] Address [address] [place] [phone] Care Team Providers Care Production Hand Name Role Phone Carlitos ROBERTS, Jose Primary Care Provider Konstantin Franco [phone] REASON FOR VISIT r/s colonoscopy Encounters Encounter Location Date Provider Diagnosis [facility] [address] [facility] [address] [place] [phone] 03/23/2023 Konstantin Bains Plan Of Treatment No Information Progress Notes * DIANE BURNSDOB:1975 (47 yo M)Acc No.[id number]:03/23/2023 Patient:?DIANE BURNS :1975???Age:47 Y???Sex:Male Address:[address] , [place], [address] * true * Date:? Generated for Anastasiyai zaina/Tomas/eTransmitting on:?08/23/2024 11:30 AM EDT
--- OUTSIDE RECORDS SUMMARY | 2024-08-23 11:30 | XMS_ITS | Clinical Summary ---
Author Organization [facility] Address [address] [place] [address] Care Team Providers Care Artist'S Manager Name Role Phone Unavailable Primary Care Provider Unavailabl e Social History Tobacco Use Types Packs/Day Years Used Date Smoking Tobacco: Never Assessed Sex and Gender Information Value Date Recorded Sex Assigned at Not on file Gender Identity Not on file Sexual Orientation Not on file Plan of Treatment Not on file
--- OUTSIDE RECORDS SUMMARY | 2024-08-23 11:30 | XMS_ITS | Clinical Summary ---
Author Organization [facility] Address [address] [place] [address] Care Team Providers Care Wheel Cutter Name Role Phone Unavailable Primary Care Provider Unavailabl e Social History Tobacco Use Types Packs/Day Years Used Date Smoking Tobacco: Never Assessed Sex and Gender Information Value Date Recorded Sex Assigned at Not on file Legal Sex Male 10:14 PM EST Gender Identity Not on file Sexual Orientation Not on file Plan of Treatment Health Maintenance Due Date Last Done Comments DTaP,Tdap,and Td Vaccines (1 - Tdap) 08/28/1995 Hepatitis B Vaccines (1 of 3 - 19+ 3-dose series) 08/28/1995 COVID-19 Vaccine (2023-2 5 season) 2024 Influenza Vaccine (Season Ended) 2025 HIB Vaccines Aged Out No longer eligi ble based on patient's age to complete this topic HPV Vaccines Aged Out No longer eligi ble based on patient's age to complete this topic Hepatitis A Vaccines Aged Out No long er eligible based on patient's age to complete this topic IPV Vaccines Aged Out No longer eligi ble based on patient's age to complete this topic MMR Vaccines Aged Out No longer eligi ble based on patient's age to complete this topic Meningococcal ACWY Vaccine Aged Out N o longer eligible based on patient's age to complete this topic Meningococcal B Vaccine Aged Out No l onger eligible based on patient's age to complete this topic Pneumococcal Vaccine: Pediat rics (0 to 5 Years) and At-Risk Patients (6 to 64 Years) Aged Out No longer eligible b ased on patient's age to complete this topic RSV Immunization Patients Un ángel 20 months Aged Out No longer eligible b ased on patient's age to complete this topic Varicella Vaccines Aged Out No longer eligible based on patient's age to complete this topic
--- OUTSIDE RECORDS SUMMARY | 2024-08-23 11:30 | XMS_ITS ---
Author Organization [facility] Address [address] [place] [address] Care Team Providers Care Plastic Tubing Insulation Supervisor Name Role Phone Carlitos ROBERTS, Jose Primary Care Provider Konstantin Franco [phone] REASON FOR VISIT screening Encounters Encounter Location Date Provider Diagnosis [facility] [place] [address] [place], [place] [phone] 05/29/2023 Konstantin Bains Encounter for scre ening colonoscopy Z12.11 and Other hemorrhoids K64.8 Assessments Encounter Date Diagnosis (ICD Code) Assessment Notes Treatment Notes Treatment Clinical Notes Section Notes 05/29/2023 Encounter for screening colonoscopy (ICD-10 - Z12.11) 05/29/2023 Other hemorrhoids (ICD-10 - K64.8) Plan Of Treatment No Information Progress Notes * DIANE BURNSDOB:1975 (48 yo M)Acc No.[id number]:05/29/2023 COLON WITH MAC Patient:?DIANE BURNS Provider:?Konstantin Bains MD :1975???Age:47 Y???Sex:Male Khoi e:05/29/2023 Address:[address] [place] [address] Pcp:Jose Urbina MD Subjective: * Chief Complaints: * ???1. Screening. * Medical History:? Objective: * Vitals:? Assessment: * Assessment: 1.?Encounter for screening c olonoscopy - Z12.11 (Primary)???2.?Other hemorrhoids - K64.8??? Plan: * Treatment: * Procedure Codes:?44845 DIAGN OSTIC COLONOSCOPY, Modifiers: 33 * * The named appointment provid er may or may not be the originator of this progress note, and it is not deemed complete until electronically signed by the appointment provider. Sign off status: Pending * Provider:?Konstantin Bains MD Date:? 024 Generated for Rosa M mahajan/Tomas/Zulmaitting on:?08/23/2024 11:30 AM EDT
--- OUTSIDE RECORDS SUMMARY | 2024-08-23 11:30 | XMS_ITS | Patient Health Record ---
Author Organization [facility] Address [address] [place] [address] Care Team Providers Care Asphalt Heater Operator Name Role Phone Jose Urbina MD Primary Care Provider Konstantin Franco [phone] Allergies No Known Allergies Reason For Referral No Information Medications Medication SIG (Take, Route, Fr equency, Duration) Notes Start Date End Date Status Cosentyx 150 MG/ML 1 mL Subcutaneous for 30 day(s) Active Viagra 25 MG 1 tablet as needed O rally Once a day for 30 day(s) Active Immunizations Vaccine Route Administration Date Status Comme nts Influenza Unknown 01/16/2023 Refused Social History Tobacco Use: Social History Observation Description Date Details (start date - stop date) Never Smoker NA - NA Tobacco Use/Smoking Question Answer Notes Patient is a nonsmoker Alcohol Screen Question Answer Notes Did you have a drink containing alcohol in the p ast year? No Points 0 Interpretation Negative Section Notes: No alcohol, nonsmoker Problems Problem Type SNOMED Code ICD Code Onset Dates Problem Status W/U Status Risk Notes Problem [id number] Colon cancer screening (Z12.11) Active confirmed Problem [id number] Preprocedural examination (Z01.818) Active confirmed Plan Of Treatment Future Test Test Name Order Date COLONOSCOPY 01/16/2023 Insurance Providers Payer Name Payer Address Payer Phone Subscriber Number Group Number Insured Name Patient Relationship to Insured Coverage Start Date Coverage End Date [facility] [address] [place] [address] [id number] DIANE BURNS Self - patient is the insured Medical (General) History Medical History History ICD Code Psoriasis Denies PR,DM,CVA,Lung disease,renal dise ase Surgical History Surgery Date(Month/Year)
== END 2024-08-23 10:43 | disposition home or self-care (01) ==
DX: G47.33 Obstructive sleep apnea (adult) (pediatric) (principal); L40.9 Psoriasis, unspecified; E66.812 Obesity, class 2; Z68.35 Body mass index [BMI] 35.0-35.9, adult; I10 Essential (primary) hypertension

== ENCOUNTER → 2024-08-23 09:57 | Outpatient (BNVA) | payer BC, SELFPAY | PROVIDERS: PCP Internal Medicine | DX: Z13.89 Encounter for screening for other disorder (principal) ==

== ENCOUNTER 2024-10-27 07:16 | Outpatient (REF) | payer BC, SELFPAY ==
--- OUTSIDE RECORDS SUMMARY | 2024-10-27 07:19 | XMS_ITS | Clinical Summary ---
Author Organization [facility] Address [address] [place] [address] Care Team Providers Care Child Care Provider Name Role Phone Unavailable Primary Care Provider [...]
[2024-10-27 07:30] LABS: MANUAL DIFF FLAG NO
[2024-10-27 07:54] LABS: Basophils Percent Auto 0.8 % (0-2); Eosinophils Absolute Auto 0.1 X10*3/uL (0.0-0.4); Eosinophils Percent Auto 1.4 % (0-4); Hematocrit 47.5 % (42.0-52.0); Hemoglobin 16.4 g/dl (14.0-18.0); Imm Gran Abs Auto 0.01 X10*3/uL (0.00-0.03); Imm Gran Pct Auto 0.3 % (0.0-0.4); Lymphocytes Absolute Auto 1.1 X10*3/uL (1.2-4.9); Lymphocytes Percent Auto 30.1 % (20-40); Mean Corpuscular HGB Conc 34.5 g/dl (31.0-36.0); Mean Corpuscular Hemoglobin 30.4 pg (27.0-33.0); Mean Corpuscular Volume 88.1 fL (80.0-98.0); Monocytes Absolute Auto 0.3 X10*3/uL (0.1-1.2); Monocytes Percent Auto 8.6 % (2-11); Neutrophils Absolute Auto 2.1 x10*3/uL (2.0-8.3); Neutrophils Percent Auto 58.8 % (45-73); Red Blood Count 5.39 X10*6/uL (4.60-5.80); Red Cell Distribution Width 12.9 % (11.0-16.0); White Blood Count 3.6 X10*3/uL (4.8-10.8)
[2024-10-27 08:03] LABS: Appearance Urine Clear; Color Urine Yellow; Glucose Urine UA Negative (Negative); Leukocyte Esterase Urine Negative (Negative); Nitrite Urine Negative (Negative); UMIC TRIGGER UACC YES; Urine Blood Negative (Negative); Urine Ketones Trace mg/dL (Negative); Urine Protein 30 (1+) mg/dL (Neg-Trace)
[2024-10-27 08:08] LABS: Bacteria Urine None Seen (None Seen); Hyaline Casts Urine 0-2 /LPF (0-2); RBC Urine 0-2 /HPF (0-2); Squamous Epithelial Cell Urine 0-2 /HPF (0-2); WBC Urine 0-5 /HPF (0-5)
[2024-10-27 08:12] LABS: Mean Platelet Volume 10.5 fL (9.4-12.4); Platelet Count 122 X10*3/uL (160-400)
[2024-10-27 08:17] LABS: Alanine Aminotransferase 28 U/L (0-40); Albumin Level 4.8 g/dL (3.5-5.0); Alkaline Phosphatase 33 U/L (39-117); Anion Gap 12 (12-20); Aspartate Amino Transferase 21 U/L (5-37); Bilirubin Total 0.8 mg/dL (0.0-1.0); Blood Urea Nitrogen 18 mg/dL (9-16); Calcium 9.4 mg/dL (8.4-10.2); Carbon Dioxide 23 mmol/L (22-29); Chloride 110 mmol/L (96-108); Cholesterol 189 mg/dL (<200); Estimated Glomerular Filt Rate > 60; Glucose Fasting 87 mg/dL (60-99); HDL Cholesterol 29 mg/dL (>40); LDL Cholesterol Calculated 140 mg/dL (<100); Potassium 4.3 mmol/L (3.3-5.1); Sodium 141 mmol/L (135-145); Total Protein 7.3 g/dL (6.5-8.0); Triglycerides 103 mg/dL (<150)
[2024-10-27 08:33] LABS: TSH reflex Free T4 2.13 uIU/mL (0.32-4.0); Vitamin D 25-OH Total 23.2 ng/mL (>30)
[2024-10-29 22:23] LABS: TS Negative Control Passed; TS Panel A 0; TS Panel B 0; TS Positive Control Passed; TSpotTB Negative (Negative)
== END 2024-10-27 07:17 | disposition home or self-care (01) ==
LOC: HO.LAB 07:16
PROVIDERS: Absent Provider Dermatology
DX: Z00.00 Encounter for general adult medical examination without abnormal findings (principal); E66.9 Obesity, unspecified; L40.9 Psoriasis, unspecified
CPT/HCPCS: 36415; 80053; 80061; 81001; 81003; 82306; 84443; 85025; 86481